=== PATIENT | female | born 1985 | race Caucasian/White ===

== ENCOUNTER 2017-05-19 17:40 | Inpatient (IN) | payer SELFPAY ==
[~2017-05-19] VITALS: Ht 162.6 cm; Wt 46.9 kg
[2017-05-19] MEDS ORDERED: ASPI81TA85 PO (18:08)
[2017-05-19 19:52] LABS: MEAN CORPUSCULAR HEMOGLOBIN 30.6 pg (27.0-33.0); MEAN CORPUSCULAR HGB CONC 34.2 g/dl (32.0-36.5); MEAN CORPUSCULAR VOLUME 89.5 fl (80.0-96.0); RED CELL DISTRIBUTION WIDTH 13.4 % (11.5-14.5); WHITE BLOOD COUNT 6.2 K/mm3 (4.0-10.0)
[2017-05-19 20:06] LABS: CONTROL LINE HCG INT CTR LINE PRESENT
[2017-05-19 20:21] LABS: METHADONE URINE NEGATIVE (NEGATIVE)
[2017-05-19 20:22] LABS: ALBUMIN 3.8 GM/DL (3.2-5.2); ALBUMIN/GLOBULIN RATIO 1.03 (1.00-1.93); ALKALINE PHOSPHATASE 61 U/L (45-117); ALT/SGPT 12 U/L (12-78); ANION GAP 8 MEQ/L (8-16); AST/SGOT 15 U/L (15-37); BILIRUBIN,DIRECT < 0.1 MG/DL (0.0-0.2); BILIRUBIN,TOTAL 0.4 MG/DL (0.2-1.0); BLOOD UREA NITROGEN 11 MG/DL (7-18); CALCIUM LEVEL 9.4 MG/DL (8.5-10.1); CARBON DIOXIDE LEVEL 26 MEQ/L (21-32); CHLORIDE LEVEL 106 MEQ/L (98-107); CREATININE FOR GFR 0.68 MG/DL (0.55-1.02); GLOMERULAR FILTRATION RATE > 60.0 (>60); GLUCOSE, FASTING 85 MG/DL (70-105); POTASSIUM SERUM 3.7 MEQ/L (3.5-5.1); SODIUM LEVEL 140 MEQ/L (136-145); TOTAL PROTEIN 7.5 GM/DL (6.4-8.2)
--- NOTE | 2017-05-19 20:50 | REP ---
Clinical: Trauma . Comparison: None . Findings: The ventricles, sulci, and cisterns are normal in position and appearance. Coffey-white differentiation is maintained. No acute intracranial hemorrhage, mass/mass effect, pathology or trauma/injury. No evidence for acute infarction. No extra-axial fluid collection. Calvarium is intact. Paranasal sinuses and mastoid air cells are clear. Impression: Normal noncontrast head CT. No evidence for acute intracranial pathology or trauma/injury. Signed by Kvng Lin MD 05/19/2017 08:42 P
[2017-05-19] MEDS ORDERED: MAALOX 30 ML SUSP *UDC PO PRN (23:15)
[2017-05-19] MEDS ORDERED: MOM 30ML SUSPENSION UDC PO PRN (23:15)
[2017-05-19] MEDS ORDERED: ACETAMINOPHEN TAB 650MG DOSE (2X325MG) PO PRN (23:15)
[2017-05-20 01:29] VITALS: BP 132/75
[2017-05-20] MEDS: traZODone 50 MG TAB PO PRN ×2 (02:40→21:37)
[2017-05-20 06:00] VITALS: BP 118/72
[2017-05-20] MEDS: SERTRALINE HCL 50 MG TAB PO SCH (10:40)
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
[2017-05-20 18:18] VITALS: BP 111/61
[2017-05-21 06:14] VITALS: BP 123/68
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
[2017-05-21] MEDS: ASPIRIN 81 MG ENTERIC TAB PO SCH (09:02)
[2017-05-21] MEDS: SERTRALINE HCL 50 MG TAB PO SCH (09:02)
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
[2017-05-21 18:00] VITALS: BP 127/87
[2017-05-21] MEDS: traZODone 50 MG TAB PO PRN (20:52)
[2017-05-22] MEDS: LORazepam 1 MG TAB PO PRN ×2 (00:11→18:22)
[2017-05-22 06:15] VITALS: BP 111/64
[2017-05-22] MEDS: ASPIRIN 81 MG ENTERIC TAB PO SCH (09:13)
[2017-05-22] MEDS: SERTRALINE HCL 50 MG TAB PO SCH (09:13)
--- NOTE | 2017-05-22 13:53 | ECGEPIP ---
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
[2017-05-22 18:28] VITALS: BP 128/80
[2017-05-22] MEDS: traZODone 50 MG TAB PO PRN (20:39)
[2017-05-23] MEDS: LORazepam 1 MG TAB PO PRN ×2 (06:27→21:41)
[2017-05-23 06:40] VITALS: BP 123/75
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
[2017-05-23] MEDS: SERTRALINE HCL 50 MG TAB PO SCH (09:01)
[2017-05-23] MEDS: ASPIRIN 81 MG ENTERIC TAB PO SCH (09:01)
[2017-05-23 18:02] VITALS: BP 136/77
[2017-05-23] MEDS: traZODone 50 MG TAB PO PRN (21:28)
[2017-05-24 06:30] VITALS: BP 127/78
[2017-05-24] MEDS: ASPIRIN 81 MG ENTERIC TAB PO SCH (08:42)
[2017-05-24] MEDS ORDERED: SERTRALINE HCL 25 MG TABLET PO SCH (09:00)
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
[2017-05-24] MEDS: hydrOXYzine 50 MG TAB PO PRN ×2 (15:51→22:15)
[2017-05-24 18:00] VITALS: BP 136/79
[2017-05-24] MEDS: traZODone 50 MG TAB PO PRN (20:56)
[2017-05-25 06:49] VITALS: BP 125/69
[2017-05-25] MEDS: CitaloPRAM (CeleXA) 10 MG TABLET PO SCH (08:16)
[2017-05-25] MEDS: ASPIRIN 81 MG ENTERIC TAB PO SCH (08:16)
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
[2017-05-25] MEDS: hydrOXYzine 50 MG TAB PO PRN ×2 (14:46→21:14)
[2017-05-25] MEDS ORDERED: RAMELTEON 8 MG TAB (ROZEREM) PO PRN (17:45)
[2017-05-25 18:00] VITALS: BP 130/80
[2017-05-26 06:20] VITALS: BP 127/69
[2017-05-26] MEDS: ASPIRIN 81 MG ENTERIC TAB PO SCH (08:42)
[2017-05-26] MEDS: CitaloPRAM (CeleXA) 10 MG TABLET PO SCH (08:42)
[2017-05-26] MEDS: hydrOXYzine 50 MG TAB PO PRN ×2 (08:43→20:45)
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
[2017-05-26] MEDS ORDERED: CitaloPRAM (CeleXA) 10 MG TABLET PO ONE (11:00)
[2017-05-26 18:06] VITALS: BP 130/80
[2017-05-26] MEDS: MIRTAZAPINE 15 MG TAB PO SCH (20:45)
[2017-05-27 06:15] VITALS: BP 124/78
[2017-05-27] MEDS: CitaloPRAM (CeleXA) 20 MG TAB PO SCH (08:34)
[2017-05-27] MEDS: ASPIRIN 81 MG ENTERIC TAB PO SCH (08:34)
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
[2017-05-27] MEDS ORDERED: CELE20TA PO (11:00)
[2017-05-27] MEDS ORDERED: HYDRO50TAB PO (11:00)
[2017-05-27] MEDS ORDERED: MIRT15TA3 PO (11:00)
[2017-05-27] MEDS: hydrOXYzine 50 MG TAB PO PRN ×2 (14:15→21:57)
--- NOTE | 2017-05-27 15:36 | REP ---
LEFT ANKLE, FOUR VIEWS: HISTORY: Fracture. A plaster cast is present obscuring detail. The patient is status post ORIF of a distal tibia fracture. A fixation plate and screws are present. There is minimal widening of the superolateral joint space. There is no dislocation. IMPRESSION: The patient is status post ORIF of a fracture of the distal tibia. Signed by Hieu Dean MD 05/27/2017 03:39 P
[2017-05-27 18:00] VITALS: BP 122/76
[2017-05-27] MEDS: MIRTAZAPINE 15 MG TAB PO SCH (21:57)
[2017-05-28 06:40] VITALS: BP 130/88
[2017-05-28] MEDS: CitaloPRAM (CeleXA) 20 MG TAB PO SCH (08:48)
[2017-05-28] MEDS: ASPIRIN 81 MG ENTERIC TAB PO SCH (08:48)
[2017-05-28] MEDS: hydrOXYzine 50 MG TAB PO PRN (11:00)
[2017-05-28] MEDS ORDERED: HALOPERIDOL 5 MG/ML VIAL (J1630) IM STA (18:42)
[2017-05-28] MEDS ORDERED: diphenhydrAMINE INJ 50MG/ML VIAL (J1200) IM STA (18:42)
[2017-05-28] MEDS ORDERED: LORazepam 2 MG/ML VIAL (J2060) IM STA (18:42)
[2017-05-28 18:45] VITALS: BP 137/90
[2017-05-28 19:00] VITALS: BP 111/72
[2017-05-28 19:15] VITALS: BP 108/75
[2017-05-28 19:30] VITALS: BP 108/72
[2017-05-28 19:45] VITALS: BP 101/66
--- NOTE | 2017-05-28 20:24 | REP ---
Clinical: Trauma. Fall. Comparison: 05/19/2017. Findings: The ventricles, sulci, and cisterns are normal in position and appearance. Coffey-white differentiation is maintained. No acute intracranial hemorrhage, mass/mass effect, pathology or trauma/injury. No evidence for acute infarction. No extra-axial fluid collection. Calvarium is intact. Paranasal sinuses and mastoid air cells are clear. Impression: Normal noncontrast head CT. No evidence for acute intracranial pathology or trauma/injury. Signed by Kvng Lni MD 05/28/2017 08:16 P
[2017-05-28] MEDS: MIRTAZAPINE 15 MG TAB PO SCH (21:00)
[2017-05-29 06:44] VITALS: BP 118/78
[2017-05-29] MEDS: ASPIRIN 81 MG ENTERIC TAB PO SCH (08:50)
[2017-05-29] MEDS: CitaloPRAM (CeleXA) 20 MG TAB PO SCH (08:50)
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
--- NOTE | 2017-05-29 11:39 | IPN ---
DATE OF SERVICE: 05/28/2017 The patient apparently told staff today that she was hearing voices. According to staff, she was asked to describe it. She first quoted a scripture, and then she was vague about it. The patient was also stating that she was feeling like she needed to be punished, and there were concerns that she was thinking of hurting herself; and due to her history, we decided to place her on one-to-one observation. However, when I went to see the patient, she was not willing to talk to me at all. She was basically sitting there. She would not even look at me; and so, I could not assess her for any of those things. The patient had had a fall earlier and then eventually told staff that she had hurt her head, but she was not complaining of any symptom; and eventually, the patient became very aggressive, and she had to be put in restraints and given as needed medications of Haldol, Ativan, and Benadryl; and at that point, we felt that it was not appropriate to try to obtain any imagery of her head, but the patient will continue to be monitored closely. MENTAL STATUS EXAMINATION: The patient is oriented at least to person. I am not able to do a full mental status evaluation because she would not talk to me. She did not indicate that she was suicidal or homicidal at this point. Insight and judgment is poor. DIAGNOSIS: Major depressive disorder, recurrent, sever without psychotic symptoms. TREATMENT PLAN: At this point, we will further observe and evaluate this patient for ongoing depression and for continued resolution of the suicidal ideation and we will continue to titrate medications as indicated. ROB
[2017-05-29 18:00] VITALS: BP 131/76
--- NOTE | 2017-05-29 20:53 | CR ---
DATE OF CONSULTATION: 05/29/2017 Consulted by the mental health unit to evaluate left ankle, History of left ankle fracture open reduction internal fixation (ORIF) by Dr. Lu in [facility]. Injury was treated surgically near the end of March. Appears to be an ORIF of the ankle. Operative note also suggested that there may be an ACL injury as well as pubic ramus injuries. The patient is not currently complaining of pain. Xrays revealed a well reduced ankle fracture with plate fixation of the tibia / this was a tibial plafond fracture. CLINICAL EXAMINATION: Wound looks good, it is clean and dry. No erythema. IMPRESSION: Tibial plafond fracture, left, in this 32-year-old female. RECOMMENDATIONS: Basically this is a wound check, the wound looks good. The primary team needs to coordinate with the operative surgeon with respect to his own post operative plan. This would include when to advance weightbearing, rehabilitation and other needs. This patient is going to be transferred to another facility apparently next week and that intervention, contacting the operative surgeon, needs to be accomplished in my opinion prior to her transfer. For further details please refer to the medical record. MTDD
[2017-05-29] MEDS: hydrOXYzine 50 MG TAB PO PRN (21:56)
[2017-05-29] MEDS: MIRTAZAPINE 15 MG TAB PO SCH (21:56)
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
[2017-05-30 06:36] VITALS: BP 121/82
[2017-05-30] MEDS: CitaloPRAM (CeleXA) 20 MG TAB PO SCH (08:57)
[2017-05-30] MEDS: ASPIRIN 81 MG ENTERIC TAB PO SCH (08:57)
[2017-05-30] MEDS: risperiDONE 1 MG TAB PO SCH ×2 (12:28→21:26)
[2017-05-30 18:00] VITALS: BP 116/74
[2017-05-30] MEDS: MIRTAZAPINE 15 MG TAB PO SCH (21:26)
[2017-05-30] MEDS: hydrOXYzine 50 MG TAB PO PRN (21:26)
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
[2017-05-31 06:24] VITALS: BP 122/61
[2017-05-31] MEDS: ASPIRIN 81 MG ENTERIC TAB PO SCH (08:46)
[2017-05-31] MEDS: risperiDONE 1 MG TAB PO SCH (08:46)
[2017-05-31] MEDS: CitaloPRAM (CeleXA) 20 MG TAB PO SCH (08:46)
[2017-05-31] MEDS ORDERED: LORazepam 0.5 MG TAB PO PRN (14:30)
--- NOTE | 2017-05-31 14:53 | REP ---
CT Head without contrast HISTORY: Fall COMPARISON: 05/28/2017 There is no intraparenchymal hemorrhage, acute infarct, mass or midline shift. The ventricular system is normal in appearance. There is no extra cerebral collection. There is no fracture. The visualized sinuses are clear. IMPRESSION: There is no intracranial lesion. Signed by Hieu Dean MD 05/31/2017 02:44 P
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
[2017-05-31] MEDS: risperiDONE 0.5 MG TAB PO SCH ×2 (16:51→20:46)
[2017-05-31 18:00] VITALS: BP 135/71
[2017-05-31] MEDS: MIRTAZAPINE 15 MG TAB PO SCH (20:46)
[2017-06-01 06:18] VITALS: BP 135/75
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
[2017-06-01] MEDS: risperiDONE 0.5 MG TAB PO SCH ×3 (09:53→17:01)
[2017-06-01] MEDS: ASPIRIN 81 MG ENTERIC TAB PO SCH (09:53)
[2017-06-01] MEDS: CitaloPRAM (CeleXA) 10 MG TABLET PO SCH (09:54)
[2017-06-01 18:00] VITALS: BP 106/74
[2017-06-01] MEDS: LORazepam 0.5 MG TAB PO SCH (21:21)
[2017-06-01] MEDS: MIRTAZAPINE 15 MG TAB PO SCH (21:21)
[2017-06-02 06:48] VITALS: BP 144/81
[2017-06-02] MEDS: CitaloPRAM (CeleXA) 10 MG TABLET PO SCH (08:44)
[2017-06-02] MEDS: ASPIRIN 81 MG ENTERIC TAB PO SCH (08:45)
[2017-06-02] MEDS: risperiDONE 0.5 MG TAB PO SCH ×2 (08:45→21:53)
[2017-06-02] MEDS: LORazepam 0.5 MG TAB PO SCH ×3 (08:45→21:53)
[2017-06-02 08:49] VITALS: BP 122/69
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
[2017-06-02 18:00] VITALS: BP 116/74
[2017-06-02] MEDS: MIRTAZAPINE 15 MG TAB PO SCH (21:53)
[2017-06-03 07:17] VITALS: BP 133/81
[2017-06-03] MEDS: ASPIRIN 81 MG ENTERIC TAB PO SCH (09:04)
[2017-06-03] MEDS: risperiDONE 0.5 MG TAB PO SCH ×2 (09:04→21:55)
[2017-06-03] MEDS: CitaloPRAM (CeleXA) 10 MG TABLET PO SCH (09:04)
[2017-06-03] MEDS: LORazepam 0.5 MG TAB PO SCH ×3 (09:04→21:55)
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
[2017-06-03 18:00] VITALS: BP 126/74
[2017-06-03] MEDS: MIRTAZAPINE 15 MG TAB PO SCH (21:55)
[2017-06-04 06:28] VITALS: BP 122/69
[2017-06-04] MEDS: risperiDONE 0.5 MG TAB PO SCH ×2 (08:23→20:40)
[2017-06-04] MEDS: LORazepam 0.5 MG TAB PO SCH ×3 (08:23→20:40)
[2017-06-04] MEDS: ASPIRIN 81 MG ENTERIC TAB PO SCH (08:23)
[2017-06-04] MEDS: CitaloPRAM (CeleXA) 10 MG TABLET PO SCH (08:23)
[2017-06-04 18:00] VITALS: BP 121/73
[2017-06-04] MEDS: MIRTAZAPINE 15 MG TAB PO SCH (20:40)
[2017-06-05 06:19] VITALS: BP 131/71
[2017-06-05] MEDS: ASPIRIN 81 MG ENTERIC TAB PO SCH (09:00)
[2017-06-05] MEDS: CitaloPRAM (CeleXA) 10 MG TABLET PO SCH (09:00)
[2017-06-05] MEDS: risperiDONE 0.5 MG TAB PO SCH ×2 (09:00→21:58)
[2017-06-05] MEDS: LORazepam 0.5 MG TAB PO SCH ×3 (09:00→21:58)
[2017-06-05 18:00] VITALS: BP 128/84
[2017-06-05] MEDS: MIRTAZAPINE 15 MG TAB PO SCH (21:58)
[2017-06-06 06:50] VITALS: BP 123/66
--- NOTE | 2017-06-06 09:10 | MHIPNPDOC ---
[facility] Progress Note Progress Note DATE OF SERVICE: 06/06/17 Entry made an error, refer to discharge summary of same date for details. Vital Signs Vital Signs Date Time Temp Pulse Resp B/P (MAP) Pulse Ox O2 Delivery O2 Flow Rate FiO2 06/06/17 06:50 98.8 96 18 123/66 (85) 06/03/17 18:00 Room Air Current Medications Current Medications Acetaminophen (Tylenol Tab) 650 mg Q6HP PRN PO HEADACHE or DISCOMFORT Last administered on 05/28/17 06:28; Start 05/19/17 at 23:15; Stop 06/18/17 at 23:14 Al Hydrox/Mg Hydrox/Simethicone (Mylanta) 30 ml Q4HP PRN PO HEARTBURN/ INDIGESTION; Start 05/19/17 at 23:15; Stop 06/18/17 at 23:14 Aspirin (Ecotrin) 81 mg DAILY PO Last administered on 06/05/17 09:00; Start at 09:00; Stop 06/20/17 at 08:59 Citalopram Hydrobromide (CeleXA) 10 mg QAM PO Last administered on 05/26/17 08: 42; Start 05/25/17 at 09:00; Stop 05/26/17 at 11:05; Status DC Citalopram Hydrobromide (CeleXA) 20 mg QAM PO Last administered on 05/31/17 08 :46; Start 05/27/17 at 09:00; Stop 05/31/17 at 14:34; Status DC Citalopram Hydrobromide (CeleXA) 30 mg QAM PO Last administered on 06/05/17 09 :00; Start 06/01/17 at 09:00; Stop 07/01/17 at 08:59 Diphenhydramine HCl (Benadryl) 50 mg STAT STAT IM Last administered on 18:56; Start 05/28/17 at 18:42; Stop 05/28/17 at 18:46; Status DC Haloperidol (Haldol) 5 mg STAT STAT IM Last administered on 05/28/17 18:56; Start 05/28/17 at 18:42; Stop 05/28/17 at 18:46; Status DC Home Med (Med Rec Complete!) ASDIRECTED XX ; Start 05/19/17 at 21:45; Stop at 21:45; Status DC Hydroxyzine HCl (Atarax) 50 mg Q6HP PRN PO ANXIETY Last administered on 21:26; Start 05/24/17 at 10:00; Stop 05/31/17 at 14:34; Status DC Lorazepam (Ativan) 0.5 mg TID PO Last administered on 06/05/17 21:58; Start at 21:00; Stop 06/07/17 at 14:29 Lorazepam (Ativan) 0.5 mg TIDP PRN PO ANXIETY/AGITATION Last administered on 15:24; Start 05/31/17 at 14:30; Stop 06/01/17 at 17:46; Status DC Lorazepam (Ativan) 1 mg Q8HP PRN PO ANXIETY/AGITATION Last administered on 21:41; Start 05/19/17 at 23:15; Stop 05/24/17 at 09:57; Status DC Lorazepam (Ativan) 2 mg STAT STAT IM Last administered on 05/28/17 18:56; Start 05/28/17 at 18:42; Stop 05/28/17 at 18:46; Status DC Magnesium Hydroxide (Milk Of Magnesia) 30 ml DAILYPRN PRN PO CONSTIPATION; Start 05/19/17 at 23:15; Stop 06/18/17 at 23:14 Mirtazapine (Remeron) 15 mg QHS PO Last administered on 06/05/17 21:58; Start 05/26/17 at 21:00; Stop 06/25/17 at 20:59 Ramelteon (Rozerem) 8 mg QHSP PRN PO INSOMNIA Last administered on 05/25/17 21: 14; Start 05/25/17 at 17:45; Stop 05/26/17 at 11:02; Status DC Risperidone (RisperDAL) 0.5 mg BID PO Last administered on 06/05/17 21:58; Start 06/02/17 at 09:00; Stop 07/02/17 at 08:59 Risperidone (RisperDAL) 0.5 mg QID PO Last administered on 06/01/17 17:01; Start 05/31/17 at 17:00; Stop 06/01/17 at 17:42; Status DC Risperidone (RisperDAL) 1 mg BID PO Last administered on 05/31/17 08:46; Start 05/30/17 at 09:00; Stop 05/31/17 at 14:34; Status DC Sertraline HCl (Zoloft) 25 mg DAILY PO Last administered on 05/24/17 08:42; Start 05/24/17 at 09:00; Stop 05/24/17 at 09:59; Status DC Sertraline HCl (Zoloft) 50 mg DAILY PO Last administered on 05/23/17 09:01; Start 05/20/17 at 09:00; Stop 05/23/17 at 14:23; Status DC Trazodone HCl (Desyrel) 50 mg QHSP PRN PO INSOMNIA Last administered on 20:56; Start 05/19/17 at 23:15; Stop 05/25/17 at 17:39; Status DC Allergies Coded Allergies: No Known Allergies (Unverified , 05/19/17) Carleen Alcantara Jun 06, 2017 09:10
[2017-06-06] MEDS: ASPIRIN 81 MG ENTERIC TAB PO SCH (09:12)
[2017-06-06] MEDS: LORazepam 0.5 MG TAB PO SCH ×3 (09:12→21:18)
[2017-06-06] MEDS: CitaloPRAM (CeleXA) 10 MG TABLET PO SCH (09:12)
[2017-06-06] MEDS: risperiDONE 0.5 MG TAB PO SCH ×2 (09:12→21:18)
[2017-06-06 18:00] VITALS: BP 120/75
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
[2017-06-06] MEDS ORDERED: RISP0.5T21 PO (20:13)
[2017-06-06] MEDS ORDERED: CELE10TA PO (20:13)
[2017-06-06] MEDS ORDERED: MILKSUS PO (20:13)
[2017-06-06] MEDS ORDERED: ATIV1TAB10 PO (20:13)
[2017-06-06] MEDS: MIRTAZAPINE 15 MG TAB PO SCH (21:18)
[2017-06-07] MEDS: risperiDONE 0.5 MG TAB PO SCH (03:58)
[2017-06-07] MEDS: LORazepam 0.5 MG TAB PO SCH (03:58)
[2017-06-07] MEDS: CitaloPRAM (CeleXA) 10 MG TABLET PO SCH (03:59)
[2017-06-07] MEDS: ASPIRIN 81 MG ENTERIC TAB PO SCH (04:00)
== END 2017-06-07 04:02 | DRG 751 ==
LOC: M ED 17:40 → M ED INP 23:07 → M PSY 05-20 01:30
PROVIDERS: ADMIT Psychiatry & Neurology Psychiatry; ATTEND Psychiatry & Neurology Psychiatry
DX: F32.3 Major depressive disorder, single episode, severe with psychotic features (principal); F31.9 Bipolar disorder, unspecified; F42.9 Obsessive-compulsive disorder, unspecified; Z79.82 Long term (current) use of aspirin

== ENCOUNTER 2022-03-26 20:37 | Emergency (ER) | payer SELFPAY ==
[~2022-03-26] VITALS: Ht 160 cm; Wt 61.1 kg
[~2022-03-26 20:37] MED LIST: ASPI81TA86 PO; ATIV1TAB10 PO; CELE10TA PO; CELE20TA PO; HYDR1TAB33 PO; MILK120011 PO; MIRT15TA3 PO; RISP0.5T21 PO
[2022-03-26] MEDS ORDERED: RISP-7 PO (21:10)
[2022-03-27 00:02] VITALS: BP 120/70
== END 2022-03-27 00:03 | disposition home or self-care (01) ==
LOC: M ED 20:37
DX: F32.A Depression, unspecified (principal); F41.9 Anxiety disorder, unspecified